=== PATIENT | female | born 1985 | race Caucasian/White ===

== ENCOUNTER → 2017-11-27 | Outpatient (CLI) | payer OTHER ==
[~2017-11-27] MED LIST: ALEVE 220MG220 MG PO; BCP; LEVAQUIN 250MG250 MG PO; LORTAB 5/500 501 TAB PO; METRONIDAZOLE500 MG PO; MOTRIN 200200 MG/TAB PO; PRENATAL VITAMI1 TA5 PO; ZITHROMAX1 GM/PACKE PO
== END ==
LOC: MC.RAD 08:32
DX: N64.4 Mastodynia (principal)